=== PATIENT | male | born 1950 | race Caucasian/White ===

== ENCOUNTER 2025-07-23 09:25 | Inpatient (IN) | payer MEDICARE, MEDICAID ==
[~2025-07-23] VITALS: Ht 172.7 cm; Wt 63.0 kg
[2025-07-23] MEDS: HYDROcodone/acetaminophen 10/325mg tab PO ONE (10:55)
--- NOTE | 2025-07-23 11:08 | ELECTROCARDIOGRAPH REPORT ---
[facility] Test Date: 2025-07-23 Test Time: 11:05:56 Pat Name: BETO CONTRERAS Department: EMERGENCY ROOM Room: [place] [id number] Gender: M Manager Solution: AYSHA : 1950 Requested By: EVERTON CHAPA Order Number: [id number] Reading MD: Dr. Travis Izquierdo Measurements Intervals [place] Rate: 86 P: -25 MN: 166 QRS: 101 QRSD: 139 T: 65 QT: 419 QTc: 502 Interpretive Statements Sinus rhythm Atrial premature complex RBBB and LPFB Electronically Signed On 07-23-2025 20:30:[address] Travis Izquierdo Please click the below link to view image of tracing.
[2025-07-23 11:20] LABS: MEAN PLATELET VOLUME 7.0 FL (7.4-10.4); RED CELL DISTRIBUTION WIDTH 14.9 % (11.5-14.5)
--- NOTE | 2025-07-23 11:30 | RADIOLOGY REPORT ---
EXAM: DI CHEST,SINGLE VIEW Indication: aloc Technique: Single frontal view of the chest was obtained Comparison: None FINDINGS: Lines and Tubes: None Lungs: No focal consolidation. Pleura: No effusion. No pneumothorax. Cardiomediastinal contours: Unremarkable Bones: No acute osseous abnormality. IMPRESSION: No acute cardiopulmonary disease.
[2025-07-23 11:38] LABS: CREATININE 0.57 MG/DL (0.60-1.10); TOTAL CARBON DIOXIDE 28.5 MMOL/L (24-32); eCRCL 99 ML/MIN; eGFR > 90 ML/MIN
--- NOTE | 2025-07-23 11:56 | Physician Documentation ---
History of Present Illness ~ Chief Complaint: Back Pain Stated Complaint: BACK PAIN Time Seen by MD: 09:38 Source: patient, EMS Mode of Arrival: EMS Exam Limitations: no limitations HPI 74-year-old male brought in by EMS from home due to intractable back pain inability to move and be at home safely. Patient states that he was running errands he still drives and experienced back pain and right lower extremity pain in which case he went to [facility] ER and was evaluated which included MRI but ultimately discharged home. Patient states that due to the inability to ambulate he was discharged via ambulance home but has been unable to care for himself including ADLs. Patient states that the pain is so severe when he tries to stand that it makes him nauseous. Patient states the pain is manageable when laying down. Patient denies any triggering events or factors that would have caused his lower back pain and right lower extremity pain. Patient denies any recent falls or activity. Patient states that he does have history of right hip fracture but states that this pain is worse than when that occurred. Medication Reconciliation Allergies: Coded Allergies: No Known Allergies (Unverified , 07/23/25) Scheduled Carvedilol (Coreg), 1 TAB PO BID, (Reported) Empagliflozin (Jardiance), 1 TAB PO DAILY, (Reported) Fluticasone Propion/Salmeterol (Fluticasone-Salmeterol 250-50), 1 PUFFS INH Q12H, (Reported) Ipratropium [place] Neb* (Atrovent Neb*), 0.5 MG IH Q6H, (Reported) Losartan Potassium* (Cozaar*), 1 TAB PO DAILY, (Reported) Prednisone (Prednisone), 1 TAB PO DAILY, (Reported) Spironolactone (Spironolactone), 0.5 MG PO DAILY, (Reported) Tiotropium [place] (Spiriva), 2 CAP INH DAILY, (Reported) Scheduled PRN Hydrocodone Bit/Acetaminophen (Hydrocodone-Apap 10-325 Tablet), 1 TABLET PO Q6H PRN for moderate or severe pain 4-10, (Reported) Past Medical History Past Medical History: *RENAL/*, *MUSCULOSKELETAL* Past Surgical History: orthopedic surgeries Lives with: Alone Lives In: Home Occupation: retired Review of Systems All Other Systems at this time: Reviewed and Negative Musculoskeletal: Reports: see HPI Physical Exam Physical Exam Vital Signs: Temperature: 97.4, Source: Temporal, Heart Rate: 90, Respiratory Rate: 16, BP: 142/80, Pulse Oximetry: 97, Weight: 59.500 Oxygen Flow Rate: 0 Physical Exam General: Alert, no apparent distress. HEENT: PERRL, EOMI, no injection, moist mucous membranes. Neck: Full range of motion. Respiratory: Lungs clear, no respiratory distress. Chest: No accessory muscle use. Cardiovascular: Regular rate and rhythm, no murmurs. Extremities: Limited activity due to pain to the right lower extremity no obvious deformity. Positive straight leg raise Neurologic: Oriented x4. Psychiatric: Normal mood and affect. Skin: Normal color, warm and dry. No edema, no ecchymosis. Progress Results/Orders Results/Orders Laboratory Tests Test 07/23/25 10:54 07/23/25 12:11 White Blood Count 10.2 Red Blood Count 4.06 L Hemoglobin 13.9 L Hematocrit 40.7 L Mean Corpuscular Volume 100.2 H Mean Corpuscular Hemoglobin 34.2 H Mean Corpuscular Hemoglobin Concent 34.2 Red Cell Distribution Width 14.9 H Platelet Count 331 Mean Platelet Volume 7.0 L Neutrophils (%) (Auto) 72.4 Lymphocytes (%) (Auto) 13.3 L Monocytes (%) (Auto) 12.9 H Eosinophils (%) (Auto) 0.8 Basophils (%) (Auto) 0.6 Neutrophils # (Auto) 7.4 Lymphocytes # (Auto) 1.4 Monocytes # (Auto) 1.3 H Eosinophils # (Auto) 0.1 Basophils # (Auto) 0.1 CBC Comment Sodium Level 135 Potassium Level 4.9 Chloride Level 98 L Carbon Dioxide Level 28.5 Anion Gap 9 Blood Urea Nitrogen 12 Creatinine 0.57 L Estimated GFR/1.73 m2 > 90 BUN/Creatinine Ratio 21.1 H Glucose Level 98 Calcium Level 9.4 Troponin I High Sensitivity 11 Albumin 3.6 Chemistry Comments Urine Specimen Description Cln catch midstream Urine Color Yellow Urine Clarity Clear Urine pH 6.0 Urine Specific [place] 1.020 Urine Protein Negative Urine Glucose (UA) 500 H Urine Ketones 15 H Urine Occult Blood Negative Urine Nitrite Negative Urine Bilirubin Small Urine Urobilinogen 0.2 Urine Leukocyte Esterase Negative Urine Culture Indicated Not ind Volume Urine Centrifuged 10 ml Urine Comment EKG/XRAY/CT/US/VASC/MRI Chest X-Ray : Additional Comments EXAM: DI CHEST,SINGLE VIEW Indication: aloc Technique: Single frontal view of the chest was obtained Comparison: None FINDINGS: Lines and Tubes: None Lungs: No focal consolidation. Pleura: No effusion. No pneumothorax. Cardiomediastinal contours: Unremarkable Bones: No acute osseous abnormality. IMPRESSION: No acute cardiopulmonary disease. Medical Decision Making Additional info obtained from: old records Findings Patient has signed and awaiting records from previous ER visit on Saturday. Patient is unable to safely go home in pain unable to ambulate and take care of himself. Patient will be admitted Departure Time of Disposition: 12:12 Disposition: 02 SHORT TERM HOSPITAL Impression: Primary Impression: Intractable back pain Additional Impressions: Failure to thrive Qualified Codes: R62.7 - Adult failure to thrive Impaired mobility and activities of daily living Condition: Fair Referrals: NO PRIMARY CARE PROVIDER (PCP) Education Educated: Patient Educated regarding: diagnosis, treatment, need for follow up Signature Scribe Signature: No scribe Attestation: The note accurately reflects work and decisions made by me.Lucero De La O - SHEREE 07/23/25 11:58 LUCERO DE LA O NP Jul 23, 2025 11:56 SAGAR MG MD Jul 29, 2025 18:34
[2025-07-23] MEDS ORDERED: ondansetron/PF 4mg/2ml inj IV PRN (12:25)
[2025-07-23] MEDS ORDERED: mag hydrox/Alum hydrox/simeth 30ml oral suspension PO PRN (12:25)
[2025-07-23] MEDS ORDERED: magnesium sulf-water 4G/100mL 100 ML IV PRN (12:25)
[2025-07-23] MEDS ORDERED: magnesium sulf-water 2g/50mL 50 ML IV PRN (12:25)
[2025-07-23] MEDS ORDERED: potassium Cl 20 mEq SR tablet PO PRN ×2 (12:25)
[2025-07-23] MEDS ORDERED: potassium Cl 40MEQ/1/2NS 520ml 520 ML IV PRN (12:25)
[2025-07-23 12:30] LABS: LEUKOCYTE ESTERASE ,URINE NEGATIVE (Neg); NITRITES, URINE NEGATIVE (Neg); OCCULT BLOOD,URINE NEGATIVE (Neg)
[2025-07-23 12:36] LABS: UA COLLECTION TYPE CLN CATCH MIDSTREAM
[2025-07-23 14:04] VITALS: BP 149/77; PULSE 90; RESP 18; TEMP 97.5; O2SAT 99
[2025-07-23] MEDS ORDERED: CARV-49 PO ×2 (15:28→18:34)
[2025-07-23] MEDS ORDERED: LOSA-415 PO ×2 (15:40→19:00)
[2025-07-23] MEDS ORDERED: EMPA10TA PO ×2 (15:40→19:00)
[2025-07-23] MEDS ORDERED: FLUT1BLS13 INH ×2 (15:40→19:00)
[2025-07-23] MEDS ORDERED: ATR0.5NEB IH ×2 (15:40→19:00)
[2025-07-23] MEDS ORDERED: SPIR25TA5 PO ×2 (15:40→19:00)
[2025-07-23] MEDS ORDERED: TIOT18CA3 INH ×2 (15:40→19:00)
[2025-07-23] MEDS ORDERED: HYDR-3973 PO ×2 (15:40→19:00)
[2025-07-23] MEDS ORDERED: PRED5TAB PO (15:40)
[2025-07-23] MEDS ORDERED: HYDROcodone/acetaminophen 5mg/325mg tablet PO PRN (16:50)
--- NOTE | 2025-07-23 16:56 | RADIOLOGY REPORT ---
CLINICAL INDICATION: Right hip fracture TECHNIQUE: HIP 2VWSDI HIP UNILATERAL 2 VIEWS Comparison: None FINDINGS/IMPRESSION: : There is no evidence of acute fracture or dislocation. Bilateral dynamic hip screws with IM femoral nails. No hardware related complication is seen. Soft tissues are unremarkable.
--- NOTE | 2025-07-23 16:58 | RADIOLOGY REPORT ---
INDICATION: Right hip fracture TECHNIQUE: 4 views of the lumbar spine were obtained. COMPARISON: None FINDINGS: Moderate to severe chronic appearing superior plate compression fracture at L1. Mild chronic appearing superior plate compression fracture at L2. Suspect a mild chronic appearing superior endplate compression fracture at T12 poorly visualized. Grade 1 anterolisthesis of L4 and L5 secondary to advanced degenerative changes. Alignment otherwise grossly maintained Moderate degenerative disease and advanced facet degenerative changes throughout the lumbar spine. Severe vascular calcifications. IMPRESSION: Few compression fractures throughout the lower thoracic and lumbar spine, favored chronic.
--- NOTE | 2025-07-23 17:26 | HISTORY AND PHYSICAL-Residence ---
History & Physical Providers to CC Resident Creating Document: MADHU BOBBY, RES ~ History of Present Illness Reason for Admit\Complaint: Back pain and right lower extremity pain History of Present Illness This is 74 years old male with a history of COPD with baseline we L oxygen at home presented to ED with low back pain. Patient report from past 1 week he has had progressive lower back pain of 8/10 in intensity which radiates to both legs more prominent on the right, aggravated by sitting and relieving by lying on bed. Associated with numbness in right lower extremity, he also mentioned episode of uncontrolled diarrhea 3 days ago and denies any urinary incontinence. Before coming to ED patient was admitted in [facility] where he underwent MRI of lumbar and thoracic which showed mild degenerative changes in L4 and L5 with mild spinal stenosis ruled out cauda equina and conus medullaris Patient denies any fever, night sweats or recent weight loss and recent fall Patient has a history of recent hospital admission for his acute exacerbation COPD at [facility] in March 2025 Allergies: Coded Allergies: No Known Allergies (Unverified , 07/23/25) Home Medications Home Medications Active Past Medical History Past Medical History History of COPD with 3 L oxygen at home Past Surgical History Surgical History Comment Bilateral Hip intramedullary nailing Past Social History Social History Comment He lives in a [facility] home care center He smokes half a pack of cigarettes per day from past 50 years He admits marijuana use Denies any illicit drug use He drinks alcohol occasionally 6 cans of beer per week Has no primary care physician Lives with: Alone Lives In: Home Occupation: retired ROS All Other Systems: Reviewed and Negative ROS Constitutional: Reports: no symptoms reported Constitutional Patient denies any fever, chills and diaphoresis Eyes Patient denies any itching, redness, double vision, tearing, pain and discharge ENT Denies ear pain, ear bleeding, tinnitus, nosebleeds, nose congestion, throat pain, bleeding from mouth Respiratory Reports shortness of breath, denies cough, stridor, hemoptysis Cardiovascular Denies any chest pain, diaphoresis, palpitation, edema and left arm pain Gastrointestinal Reported diarrhea few days ago, no abdominal, no nausea, no vomiting, no hematemesis, no hematochezia or melena Genitourinary Denies burning urination, discharge, dysuria, pain, flank pain, hematuria and incontinence Neurological Patient reports right-sided lower extremity numbness Musculoskeletal: Reports: see HPI Musculoskeletal Reports severe low back pain of 8/10 in intensity which radiates to bilateral lower extremity, more prominent on right side Integumentary Denies any itching, rash, wounds, laceration, change in color Psychiatric Patient is anxious Exam Vitals: Vital Signs Date Time Temp Pulse Resp B/P (MAP) Pulse Ox O2 Delivery O2 Flow Rate FiO2 07/23/25 14:04 97.5 90 18 149/77 (101) 99 Nasal Cannula 3.0 General: Patient is thin, lying uncomfortably on bed HEENT: Normocephalic and atraumatic, Oral and nasal mucosa is moist. No visible head injuries Neck: Trachea is in midline. Nontender, no lymphadenopathy Chest: Bilateral normal breath sounds heard. No crackles, rhonchi or wheezes Cardiovascular: Normal rate, regular rhythm, no murmurs, no gallops Abdomen: Soft, nontender, nondistended, no masses, no bruit Musculoskeletal- Noted tenderness to the palpation of lumbar region, straight leg raising of bilateral lower extremity is positive Bilateral lower extremities are cold to touch, No cyanosis, clubbing or edema, No deformities, peripheral pulses felt SEWING MACHINE BOBBIN WINDER: No gross motor or sensory defect are present except for numbness in right lower extremity CN II-XII - intact Strength is intact in upper extremity and could not elicit in lower extremity because of pain Co-ordination is intact Skin: warn and dry with age-related skin bruises are seen on left hand Psychiatry: Anxious and uncomfortable Diagnostic Data Last Recorded Lab Results: 07/23/25 1054 07/23/25 1054 Advance Care Planning Advanced Care plannin - 30 Minutes Additional Plan 74 years old male with past medical history of COPD he is currently evaluated low back pain Intractable lower back pain likely due to 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 No hardware related complication is seen. MRI of thoracic and lumbar spine at other facility shows: Mild degenerative changes of thoracic and lumbar spine with no evidence of conus medullaris or cauda equina Pain control with [place] 5/10 according to severity Ordered PT evaluation COPD Patient has a long history COPD, he is currently on 3 L oxygen maintaining SpO2 of 99 Continue ipratropium/albuterol q.6 H p.r.n. Code Status: DNR DVT prophylaxis: Heparin subQ PT: Order Prognosis: Guarded Madhu Bobby PGY1-Internal Medicine Resident Date of Service: Jul 23, 2025 Billing Provider: MARY POP MD, SATISH, RES Jul 23, 2025 17:26
[2025-07-23 17:32] LABS: CREATININE 0.56 MG/DL (0.60-1.10); TOTAL CARBON DIOXIDE 31.0 MMOL/L (24-32); eCRCL 100 ML/MIN; eGFR > 90 ML/MIN
[2025-07-23 18:00] VITALS: BP 120/69; PULSE 89; RESP 16; TEMP 97.4; O2SAT 98
[2025-07-23] MEDS ORDERED: ipratropium/albuterol 3ml nebule NEB PRN (18:05)
[2025-07-23] MEDS ORDERED: PRED10TA23 PO (19:00)
[2025-07-23] MEDS: HYDROcodone/acetaminophen 10/325mg tab PO PRN (19:12)
[2025-07-23 20:00] VITALS: RESP 16; O2SAT 96
[2025-07-23] MEDS: K and/or MAG REPLACEMENT MC SCH (20:00)
[2025-07-23] MEDS: heparin, porcine 5000 units/ml vial SQ SCH (20:00)
[2025-07-23] MEDS: docusate sod 100mg capsule PO SCH (20:05)
[2025-07-23 20:35] VITALS: PULSE 82; RESP 20; O2SAT 96
[2025-07-23] MEDS ORDERED: morphine 4 MG/ML inj SYRINge IV PRN (21:45)
[2025-07-23] MEDS: morphine 4 MG/ML inj SYRINge IV PRN (21:57)
[2025-07-23 22:00] VITALS: BP 109/70; PULSE 72; RESP 16; TEMP 98.6; O2SAT 98
[2025-07-24] VITALS (9 sets, daily range): BP systolic 120–135; BP diastolic 73–82; PULSE 74–96; RESP 14–18; TEMP 97.4–98.2; O2SAT 95–97
[2025-07-24 06:14] LABS: CREATININE 0.45 MG/DL (0.60-1.10); TOTAL CARBON DIOXIDE 26.1 MMOL/L (24-32); eCRCL 132 ML/MIN; eGFR > 90 ML/MIN
[2025-07-24 06:36] LABS: MEAN PLATELET VOLUME 7.0 FL (7.4-10.4); RED CELL DISTRIBUTION WIDTH 14.8 % (11.5-14.5)
[2025-07-24 10:33] LABS: BASOPHILS % (MANUAL) 2.0 % (0-1); EOSINOPHILS % (MANUAL) 2.0 % (0-6); LYMPHOCYTES % (MANUAL) 28.0 % (21-51); MONOCYTES % (MANUAL) 14.0 % (2-12); NEUTROPHILS % (MANUAL) 54.0 % (42-75); PLATELET ESTIMATE NORMAL
[2025-07-24] MEDS: ketorolac trometh 30MG/ML vial 30 MG/ML VIAL IM ONE (14:05)
[2025-07-24] MEDS ORDERED: albuterol 2.5 MG/3 ML nebule NEB PRN (18:25)
--- NOTE | 2025-07-24 18:36 | PROGRESS NOTE- Residence ---
Progress Note - Resident Providers to CC Resident Creating Document: MADHU BOBBY RES ~ Antibiotic Timeout Antibiotic Ordered?: No Subjective Patient was examined at the bedside, he still reports low back pain with 8/10 in intensity Objective Vital Signs Date Time Temp Pulse Resp B/P (MAP) Pulse Ox O2 Delivery O2 Flow Rate FiO2 07/24/25 14:05 18 07/24/25 11:14 97.4 92 120/82 (95) 95 Nasal Cannula 2.0 07/24/25 07:56 28 Result Diagram: 07/24/2553107/24/25531 Patient is thin, lying uncomfortably on bed HEENT: Normocephalic and atraumatic, Oral and nasal mucosa is moist. No visible head injuries Neck: Trachea is in midline. Nontender, no lymphadenopathy Chest: Bilateral normal breath sounds heard. 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: No gross motor or sensory defect are present except for numbness in right lower extremity CN II-XII - intact Strength is intact in upper extremity and could not elicit in lower extremity because of pain Co-ordination is intact Skin: warn and dry with age-related skin bruises are seen on left hand Psychiatry: Anxious and uncomfortable Advance Care Planning Advanced Care plannin - 30 Minutes Assessment Assessment 74 years old male with past medical history of COPD he is currently evaluated low back pain Plan Plan Intractable lower back pain likely due to 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 No hardware related complication is seen. MRI of thoracic and lumbar spine at other facility shows: Mild degenerative changes of thoracic and lumbar spine with no evidence of conus medullaris or cauda equina Ordered LSO brace and given dose of Toradol 30 mg IM Pain control with [place] 5 and [place] 10 depending on the severity PT will re-evaluate the patient tomorrow COPD Not in acute distress Patient has a long history COPD, he is currently on 2 L oxygen maintaining SpO2 of 95% Ipratropium/albuterol q.4h and albuterol q.2h Code Status: DNR DVT prophylaxis: Heparin subQ PT: Order Prognosis: Guarded Disposition: Patient will be monitored in surgery, PT evaluation tomorrow and possible discharge to rehab on Saturday Madhu Bobby PGY1-Internal Medicine Resident Date of Service: Jul 24, 2025 Billing Provider: MARY POP MD,MADHU, RES Jul 24, 2025 18:36
[2025-07-24] MEDS: HYDROmorphone inj. 0.5 MG/0.5 ML DISP.SYRIN IV PRN (20:13)
[2025-07-24] MEDS: magnesium Cl slow-release 64mg tablet PO PRN (20:15)
[2025-07-24] MEDS: ipratropium/albuterol 3ml nebule NEB SCH (20:37)
[2025-07-25] VITALS (13 sets, daily range): BP systolic 105–114; BP diastolic 57–75; PULSE 72–102; RESP 15–22; TEMP 97.5–99.5; O2SAT 95–99
[2025-07-25 06:33] LABS: MEAN PLATELET VOLUME 7.2 FL (7.4-10.4); RED CELL DISTRIBUTION WIDTH 14.9 % (11.5-14.5)
[2025-07-25 07:10] LABS: CREATININE 0.41 MG/DL (0.60-1.10); TOTAL CARBON DIOXIDE 29.3 MMOL/L (24-32); eCRCL 145 ML/MIN; eGFR > 90 ML/MIN
[2025-07-25 07:56] LABS: BANDS% (MANUAL) 1.0 % (0-10); EOSINOPHILS % (MANUAL) 3.0 % (0-6); LYMPHOCYTES % (MANUAL) 23.0 % (21-51); MONOCYTES % (MANUAL) 16.0 % (2-12); NEUTROPHILS % (MANUAL) 56.0 % (42-75); PLATELET ESTIMATE NORMAL; REACTIVE LYMPHOCYTES % 1.0 % (0-0)
[2025-07-25] MEDS: nicotine 14mg patch - 24hr TD ONE (13:15)
[2025-07-25] MEDS: magnesium hydroxide 30ml (MOM) UD suspension PO PRN (16:11)
[2025-07-25] MEDS: EMPAGLIFLOZIN 10 MG TABLET PO SCH (17:14)
[2025-07-25] MEDS: bisacodyl 10mg suppository rectal RC STA (17:28)
[2025-07-25] MEDS: carvedilol 6.25mg tablet PO SCH (20:22)
[2025-07-25] MEDS: polyethylene glycol 3350 17gm powd pack PO SCH (20:23)
--- NOTE | 2025-07-25 20:33 | PROGRESS NOTE- Residence ---
Progress Note - Resident Providers to CC Resident Creating Document: MADHU BOBBY RES ~ Antibiotic Timeout Antibiotic Ordered?: No Subjective Patient was examined at the bedside, he is lying on the bed and report low back Objective Vital Signs Date Time Temp Pulse Resp B/P (MAP) Pulse Ox O2 Delivery O2 Flow Rate FiO2 07/25/25 19:34 72 16 Nasal Cannula 3.0 07/25/25 19:29 98 32 07/25/25 11:00 97.5 108/73 (85) Result Diagram: 07/25/25 0537 07/25/25 05 Patient is thin, lying uncomfortably on bed HEENT: Normocephalic and atraumatic, Oral and nasal mucosa is moist. No visible head injuries Neck: Trachea is in midline. Nontender, no lymphadenopathy Chest: Bilateral normal breath sounds heard. No crackles, rhonchi or wheezes Cardiovascular: Normal rate, regular rhythm, no murmurs, no gallops Abdomen: Soft, nontender, nondistended, no masses, no bruit Musculoskeletal- Noted tenderness to the palpation of lumbar region, straight leg raising of bilateral lower extremity is positive Bilateral lower extremities are cold to touch, No cyanosis, clubbing or edema, No deformities, peripheral pulses felt HEPATOLOGY PHYSICIAN: No gross motor or sensory defect are present except for numbness in right lower extremity CN II-XII - intact Strength is intact in upper extremity and could not elicit in lower extremity because of pain Co-ordination is intact Skin: warn and dry with age-related skin bruises are seen on left hand Psychiatry: Uncomfortable Advance Care Planning Advanced Care plannin - 30 Minutes Assessment Assessment 74 years old male with past medical history of COPD he is currently evaluated low back pain Plan Plan Intractable lower back pain likely due to 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 No hardware related complication is seen. MRI of thoracic and lumbar spine at other facility shows: Mild degenerative changes of thoracic and lumbar spine with no evidence of conus medullaris or cauda equina Ordered LSO brace and given dose of Toradol 30 mg IM Pain control with [place] 5 and [place] 10 depending on the severity PT will evaluate tomorrow COPD Not in acute distress Patient has a long history COPD, he is currently on 2 L oxygen maintaining SpO2 of 95% Ipratropium/albuterol q.4h and albuterol q.2h Chronic constipation Given bisacodyl suppository If if still persists we will give polyethylene glycol and mineral oil enema History of Congestive heart failure with unknown ejection, no acute exacerbation Continue home meds carvedilol 6.25 mg p.o. b.i.d., Jardiance Hypertension Continue home med carvedilol, losartan Code Status: DNR DVT prophylaxis: Heparin subQ PT: Order Prognosis: Guarded Disposition: Patient will be monitored in surgery, PT evaluation tomorrow and possible discharge to rehab on Saturday Madhu Bobby PGY1-Internal Medicine Resident Date of Service: Jul 25, 2025 Billing Provider: MARY POP MD, SATISH, RES Jul 25, 2025 20:33
[2025-07-25] MEDS ORDERED: mineral oil 133ml enema RC PRN (21:00)
[2025-07-26] VITALS (13 sets, daily range): BP systolic 95–121; BP diastolic 51–69; PULSE 72–94; RESP 16–20; TEMP 97.9–98.4; O2SAT 88–97
[2025-07-26 06:22] LABS: MEAN PLATELET VOLUME 7.4 FL (7.4-10.4); RED CELL DISTRIBUTION WIDTH 14.6 % (11.5-14.5)
[2025-07-26 06:23] LABS: CREATININE 0.52 MG/DL (0.60-1.10); TOTAL CARBON DIOXIDE 32.0 MMOL/L (24-32); eCRCL 115 ML/MIN; eGFR > 90 ML/MIN
--- NOTE | 2025-07-26 17:04 | PROGRESS NOTE- Residence ---
Progress Note - Resident Providers to CC Resident Creating Document: SEKOU COLE RES CC: MARY POP MD ~ Antibiotic Timeout Antibiotic Ordered?: No Subjective Patient was examined at the bedside, he continues to have low back pain. Patient patient had two bowel movements today. No other acute overnight symptoms noted Objective Vital Signs Date Time Temp Pulse Resp B/P (MAP) Pulse Ox O2 Delivery O2 Flow Rate FiO2 07/26/25 16:52 16 07/26/25 15:44 89 Nasal Cannula 2.0 07/26/25 15:36 88 21 07/26/25 11:00 98.4 95/57 (70) Result Diagram: 07/26/2551707/26/25517 General: Awake, oriented to person, place and time; mildly uncomfortable due to the pain HEENT: Conjunctive are pink, sclerae clear, no icterus, pupil is equal in both sides, reactive to light, no ear discharge, no pharyngeal erythema or an edema. Neck: Supple, no JVD, no lymphadenopathy and thyromegaly. Chest: Equal air entry on both lungs, no additional sounds no rhonchi no wheezing at the moment. Cardiovascular: S1-S2 regular sinus rhythm and, regular rate, no gallops, no rubs, no murmurs Abdomen: No visible peristalsis, Bowel sounds present on auscultation, soft, no tenderness, no guarding, no rigidity Extremities: No obvious deformities, no pitting edema bilaterally, capillary refill intact, peripheral pulsations are intact on both sides; tenderness to the palpation of lumbar region, straight leg raising of bilateral lower extremity is positive Central Nervous System: No focal neurological deficits, negative Babinski.No gross motor or sensory defect are present except for numbness in right lower extremity CN II-XII - intact Strength is intact in upper extremity and could not elicit in lower extremity because of pain. Musculoskeletal: No joint swelling, deformities, inflammations, and no scoliosis and back tenderness Skin: Warm and dry. Dry oral mucosa; age-related bruises noted on left hand Advance Care Planning Advanced Care plannin - 30 Minutes Assessment Assessment 74 years old male with past medical history of COPD he is currently evaluated low back pain Plan Plan Intractable lower back pain 2/2 Degeneration of lumbar and thoracic spine with chronic compression fracture of thoracic and lumbar spine Lumbar spine x-ray-few compression fractures throughout lower thoracic and lumbar spine, favored chronic Hip x-ray-no evidence of acute fracture or dislocation. Bilateral dynamic hip screws with IM femoral nails. No hardware related complication is seen. MRI of thoracic and lumbar spine at [facility] reported: Mild degenerative changes of thoracic and lumbar spine with no evidence of conus medullaris or cauda equina Physical therapy worked with the patient and recommended post-acute care Plan Pain control with [place] 5mg and [place] 10mg depending on the severity of pain COPD, not in exacerbation Patient has a long history COPD, he is currently on 2 L oxygen maintaining SpO2 of 95% Ipratropium/albuterol q.4h and albuterol q.2h Chronic constipation Patient had two episodes of bowel movements today Continue bowel care History of Congestive heart failure with unknown ejection, no acute exacerbation Continue home meds carvedilol 6.25 mg p.o. b.i.d., Jardiance Hypertension Continue home med carvedilol, losartan Code Status: DNR DVT prophylaxis: Heparin subQ PT: Order Prognosis: Guarded Disposition: Physical therapist worked with the patient and recommended post- acute care, patient will get discharged to [facility] tomorrow Sekou Cole PGY1-Internal Medicine Resident Date of Service: Jul 26, 2025 Billing Provider: MARY POP MD,SEKOU, RES Jul 26, 2025 17:04
[2025-07-27 04:53] LABS: MEAN PLATELET VOLUME 6.9 FL (7.4-10.4); RED CELL DISTRIBUTION WIDTH 15.0 % (11.5-14.5)
[2025-07-27 05:07] LABS: CREATININE 0.57 MG/DL (0.60-1.10); TOTAL CARBON DIOXIDE 32.0 MMOL/L (24-32); eCRCL 104 ML/MIN; eGFR > 90 ML/MIN
[2025-07-27 06:41] VITALS: BP 123/75; PULSE 68; RESP 19; TEMP 98.1; O2SAT 95
[2025-07-27 07:12] VITALS: PULSE 93; RESP 16; O2SAT 90
[2025-07-27 07:20] VITALS: PULSE 85; RESP 16
[2025-07-27 10:00] VITALS: BP 140/78; PULSE 92; RESP 15; TEMP 97.4; O2SAT 93
[2025-07-27 11:09] VITALS: PULSE 94; RESP 16; O2SAT 94
[2025-07-27 11:17] VITALS: PULSE 93; RESP 16
--- NOTE | 2025-07-27 18:35 | DISCHARGE SUMMARY-Residence ---
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 Patient report from past 1 week he has had progressive lower back pain of 8/10 in intensity which radiates to both legs more prominent on the right, aggravated by sitting and relieving by lying on bed. Associated with numbness in right lower extremity, he also mentioned episode of uncontrolled diarrhea 3 days ago and denies any urinary incontinence. Before coming to ED patient was admitted in [facility] where he underwent MRI of lumbar and thoracic which showed mild degenerative changes in L4 and L5 with mild spinal stenosis ruled out cauda equina and conus medullaris Patient denies any fever, night sweats or recent weight loss and recent fall Patient has a history of recent hospital admission for his acute exacerbation COPD at [facility] in March 2025 Hospital course: A 74 years old male with a history of COPD with baseline we L oxygen at home presented to ED with low back pain. Patient reported that he had been having progressive low back pain of 8/10 which radiates to both legs associated with numbness in right lower extremity; moderate thoracic and lumbar spine at [facility] reported mild degenerative changes of thoracic and lumbar spine with no evidence of cauda equina, patient's lumbar spine x-ray shows few compression fractures throughout her lower thoracic and lumbar spine likely chronic; patient's hip x-ray showed no evidence of acute fracture or dislocation bilateral dynamic hip screws with IM femoral nails. Patient's low back pain was controlled with [place] 5 mg and [place] 10 mg depending on the severity of his pain. Patient has a longstanding history of COPD which was not in exacerbation during this visit, patient was maintaining SpO2 of 95% minimal oxygen and breathing treatments. Patient had constipation when we treated appropriately with suppository and MiraLax. We continued patient's home medication carvedilol 6.25 mg p.o. b.i.d. and Jardiance for his history of congestive heart failure. We continued patient's home medication losartan for his hypertension. Physical therapist worked with the patient and recommended post-acute care, patient will get discharged to [facility] tomorrow Significant imaging Lumbar spine x-ray 07/23/2025 Few compression fractures throughout the lower thoracic and lumbar spine, favored chronic. Hip x-ray 07/23/2025 There is no evidence of acute fracture or dislocation. Bilateral dynamic hip screws with IM femoral nails. No hardware related complication is seen. Physical examination the time of discharge General: Awake, oriented to person, place and time; mildly uncomfortable due to the pain HEENT: Conjunctive are pink, sclerae clear, no icterus, pupil is equal in both sides, reactive to light, no ear discharge, no pharyngeal erythema or an edema. Neck: Supple, no JVD, no lymphadenopathy and thyromegaly. Chest: Equal air entry on both lungs, no additional sounds no rhonchi no wheezing at the moment. Cardiovascular: S1-S2 regular sinus rhythm and, regular rate, no gallops, no rubs, no murmurs Abdomen: No visible peristalsis, Bowel sounds present on auscultation, soft, no tenderness, no guarding, no rigidity Extremities: No obvious deformities, no pitting edema bilaterally, capillary refill intact, peripheral pulsations are intact on both sides; tenderness to the palpation of lumbar region, straight leg raising of bilateral lower extremity is positive Central Nervous System: No focal neurological deficits, negative Babinski.No gross motor or sensory defect are present except for numbness in right lower extremity CN II-XII - intact Strength is intact in upper extremity and could not elicit in lower extremity because of pain. Musculoskeletal: No joint swelling, deformities, inflammations, and no scoliosis and back tenderness Skin: Warm and dry. Dry oral mucosa; age-related bruises noted on left hand Vital Signs Date Time Temp Pulse Resp B/P (MAP) Pulse Ox O2 Delivery O2 Flow Rate FiO2 07/27/25 11:17 93 16 Nasal Cannula 2.0 07/27/25 11:09 94 28 07/27/25 10:00 97.4 140/78 (98) Laboratory Tests Test 07/26/25 05:18 107/25 04:26 White Blood Count 7.8 X10'3 9.0 X10'3 Red Blood Count 3.67 X10'6 3.57 X10'6 Hemoglobin 12.9 g/dl 12.5 g/dl Hematocrit 37.2 % 36.2 % Mean Corpuscular Volume 101.2 FL 101.5 FL Mean Corpuscular Hemoglobin 35.1 PG 34.9 PG Mean Corpuscular Hemoglobin Concent 34.7 g/dL 34.4 g/dL Red Cell Distribution Width 14.6 % 15.0 % Platelet Count 374 X10'3 438 X10'3 Mean Platelet Volume 7.4 FL 6.9 FL Neutrophils (%) (Auto) 54.9 % 60.0 % Lymphocytes (%) (Auto) 24.4 % 19.7 % Monocytes (%) (Auto) 16.4 % 16.6 % Eosinophils (%) (Auto) 2.8 % 3.0 % Basophils (%) (Auto) 1.5 % 0.7 % Neutrophils # (Auto) 4.3 X10'3 5.4 X10'3 Lymphocytes # (Auto) 1.9 X10'3 1.8 X10'3 Monocytes # (Auto) 1.3 X10'3 1.5 X10'3 Eosinophils # (Auto) 0.2 X10'3 0.3 X10'3 Basophils # (Auto) 0.1 X10'3 0.1 X10'3 CBC Comment Sodium Level 137 MMOL/L 136 MMOL/L Potassium Level 4.4 MMOL/L 4.3 MMOL/L Chloride Level 100 MMOL/L 101 MMOL/L Carbon Dioxide Level 32.0 MMOL/L 32.0 MMOL/L Anion Gap 5 3 Blood Urea Nitrogen 18 MG/DL 15 MG/DL Creatinine 0.52 MG/DL 0.57 MG/DL Estimated GFR/1.73 m2 > 90 ML/MIN > 90 ML/MIN BUN/Creatinine Ratio 34.6 26.3 Glucose Level 107 MG/DL 111 MG/DL Calcium Level 9.2 MG/DL 9.0 MG/DL Magnesium Level 1.7 MG/DL 1.5 MG/DL Total Bilirubin 0.4 MG/DL 0.4 MG/DL Aspartate Amino Transf (AST/SGOT) 23 U/L 16 U/L Alanine Aminotransferase (ALT/SGPT) 20 U/L 22 U/L Alkaline Phosphatase 93 IU/L 91 IU/L Total Protein 6.8 G/DL 6.7 G/DL Albumin 3.1 G/DL 3.1 G/DL Globulin 3.7 G/DL 3.6 G/DL Albumin/Globulin Ratio 0.8 0.9 Chemistry Comments Discharge advice FOLLOW UP WITH PRIMARY CARE PHYSICIAN IN 1 WEEK. CONTINUE LSO BRACE. CALL 911 OR VISIT THE ER. continue docusate 100mg po bid . continue miralax 1 packet po daily prn for constipation. *Problems/Diagnosis: (1) Intractable back pain Status: Acute Total Time Spent on D/C: Up to 30 Minutes Date of Service: Jul 27, 2025 Billing Provider: MARY POP MD, JAHNAVI, RES Jul 27, 2025 18:31
== END 2025-07-27 13:15 | DRG 552 ==
LOC: ER 09:25 → ED HOLD 12:21 → SUR 3N 14:18
PROVIDERS: ADMIT Family Medicine; ATTEND Family Medicine
DX: M51.360 Other intervertebral disc degeneration, lumbar region with discogenic back pain only (principal); M48.54XA Collapsed vertebra, not elsewhere classified, thoracic region, initial encounter for fracture; M48.56XA Collapsed vertebra, not elsewhere classified, lumbar region, initial encounter for fracture; M51.34 Other intervertebral disc degeneration, thoracic region; Z66 Do not resuscitate; R62.7 Adult failure to thrive; J44.9 Chronic obstructive pulmonary disease, unspecified; I11.0 Hypertensive heart disease with heart failure; I50.9 Heart failure, unspecified; Z68.21 Body mass index [BMI] 21.0-21.9, adult
CPT/HCPCS: 36415; 71045; 72100; 73502; 80048; 80053; 81003; 83735; 84484; 85007; 85025; 87081; 93005; 94640; 94760; 99285; A6250; G0378; J1171; J1644; J1885; J2270